=== PATIENT | female | born 1990 | race Caucasian/White ===

== ENCOUNTER 2024-03-05 08:45 | Emergency (ER) | payer BC, SELFPAY ==
[2024-03-05 08:46] VITALS: BP 109/78
[2024-03-05 09:11] VITALS: BMI 21.5
--- NOTE | 2024-03-05 09:23 | EDRN ---
Karen DOUGLASS in room w/ pt.
--- NOTE | 2024-03-05 09:30 | ED.GENMED ---
History of Present Illness
General
Chief Complaint: Abdominal Pain
Source: patient
Exam Limitations: none
Time Seen by Provider: 03/05/24 09:03
Nursing documentation reviewed up to this point in time: agreed with
History of Present Illness
History of Present Illness:
pt is a 33 y/o F from [place], [place]
who reportedly ws dx with crohns 1 year ago via colonscopy
asthma, sinusitis, eosinophilic esophagitis 'on a biologic'
was on linzess but says she stopped it 'to focus on my sinus problems and asthma and allergies'
chronic constipation, usually goes 1 time per week
leaving to go back home tomorrow
here with lower abd pain/cramps that are intense, and constipation despite a dose of doculax
she did not try an enema or other meds to help her go
sh ehas not had bloody, mucusy, stools, fever
she also reports dysuria
has nto really been followed by GI since getting off the linzess
Past History
Past History
ED Past Medical History: Other (crohns) and Other (eosinophilic esophagitis, asthma, allergies)
ED Past Surgical History: Cholecystectomy and Other (mutiplle sinus surgeries)
Social History
Tobacco: Non-smoker
Alcohol: None
Drug: None
Personal:
Living: with family
Review of Systems
Review of Systems
Allergies reviewed?: Yes
All Other Systems: Not applicable
Phy Exam
Physical Exam
Physical Exam:
GENERAL: Alert , in no apparent distress
EYE: pupils equal and reactive
NECK: Supple
ENT: o/p clr, mmm.
CARDIAC: Regular rate and rhythm .
LUNGS: Clear breath sounds bilaterally, no acute respiratory distress, no wheezes/rales/rhonchi
ABDOMEN: Soft, lower abdominal tenderness mild, no r/g, no cvat, normal bowel sounds, flat nondistended
Rectal small external nonbleeding hemorrhoid nonthrombosed, no pain, no stool in the vault
NEUROLOGICAL: Alert and oriented, no focal neuro deficits
SKIN: Warm and dry, skin intact.
MUSCULOSKELETAL: No edema, well perfused. neg sanya's sign
PSYCH: Normal and appropriate interaction.
Course
Orders/Labs/Results
Orders:
Orders
03/05/24 09:15
IV Insert/Care/Rem.- Treatment PRN
03/05/24 09:16
Test Result ONCE
03/05/24 09:21
Complete Blood Count/With Diff Urgent
Comprehensive Metabolic Panel Urgent
HCG, Serum Qualitative Screen Urgent
03/05/24 09:28
CT Abd/pel W Iv And Oral Contr Urgent
Comment:
Reason For Exam: constipation, lowe abd pain, h/o crohns
0.9% Sodium Chloride 1000 ml [Nss] 1,000 ml IV BOLUS
HYDROmorphone [Dilaudid] 0.5 mg IV NOW STA
Iohexol [Omnipaque] See Protocol PO NOW STA
Ondansetron Injectable [Zofran] 4 mg IV NOW STA
03/05/24 10:43
Diphenhydramine [Benadryl] 25 mg IV NOW STA
Ketorolac [Toradol] 15 mg IV NOW STA
Metoclopramide [Reglan] 10 mg IV NOW STA
03/05/24 11:11
Urinalysis Reflex To Culture Urgent
Date Specimen was Collected: 03/05/24
Time Specimen was Collected: 10:56
Abnormal Lab Results
03/05/24
11:11
Urine Bilirubin 1+ A
(Negative)
03/05/24 09:21
03/05/24 09:21
Vital Signs
Initial and Last Documented VS:
Initial Vital Signs
Temp Pulse Resp BP Pulse Ox
97.7 F 68 16 109/78 98
03/05/24 08:46 03/05/24 08:46 03/05/24 08:46 03/05/24 08:46 03/05/24 08:46
Last Documented Vital Signs
Temp Pulse Resp BP Pulse Ox
97.7 F 60 16 101/77 98
03/05/24 08:46 03/05/24 14:00 03/05/24 14:00 03/05/24 14:00 03/05/24 14:00
MDM/Problems Addressed
Differential Diagnosis Includes:
constipation, ,crohn's, obstruction, uti
MDM/Problems Addressed:
33 y/o F
reorted h/o contipation chronically and crohns but not treated
says she had linzess previously but no longer takes it w
is nt on any immunosuppression
here with lower adp ainand constipation
[place]
last good bm 7dasy ago
tried doculax, small amount
no blooy, mucus
having more pain and is requesting pain control and ivf
travels home to [place] tomorrow
on exam minimal if any tenderness, no stool in the vault, no fevers, well-appearing. Patient has unremarkable labs and a CT showing a very mild focal colitis and stool in the colon. There is no abscess or obstruction. She is not having any
diarrhea. Case discussed with ED attending. Unlikely to be a true Crohn's flare, unclear why the patient was given Linzess as a treatment for Crohn's but it seems like she is chronic constipation. Offered her MiraLAX or mag citrate but she does
not want to take it before flying. She is asking for pain medication. Will give her short course of pain medication Bentyl and oxycodone and recommend MiraLAX and follow-up with GI
*Critical Care Note
Total Time (30-74mins, 75-104mins- exclusive of procedures): Not Applicable
ED Attending Note
-
Portions of this chart may have been created with voice recognition software.� Occasional wrong word or��sound alike� substitutions may have occurred due to the inherent limitations of voice recognition software.
Discharge Plan
Departure
Patient Disposition: Home (Routine Discharge)
Date of Disposition: 03/05/24
Time of Disposition: 13:48
Patient with high blood pressure during this ER visit?: No
Condition: Fair
Discharge Problem:
Chronic constipation, Abdominal pain
Instructions: Constipation, Adult (DC)
Prescriptions:
New
oxycodone 5 mg tablet
5 mg PO Q8H PRN (Reason: Pain) Qty: 4 0RF
dicyclomine 20 mg tablet
20 mg PO TID PRN (Reason: ABDOMINAL PAIN) Qty: 6 0RF
Referrals:
NONE,* [Family Provider] -
Activity Restrictions/Additional Instructions:
YOU NEED TO FOLLOW UP WITH A GI DOCTOR WHEN YOU GET HOME
YOU WERE CONSTIPATED AND HAD MILD INFLAMMATION IN YOUR COLON ON CT
TRY MIRALAX OR MAGNESIUM CITRATE FOR THE CONSTIPATION
YOU CAN TAKE BENTYL 20 MG 3 TIMES A DAY FOR CRAMPY ABDOMINAL GUILLAUME FOR 2 DAYS
AND NEEDED YOU CAN TAKE OXYCODONE 5 MG EVERY 8 HORUS
RETURN FOR ANY CONCER, SFEVER, VOMITING, BLOODY STOOL ETC
Interventions
Interventions:
*Risk Screen - Suicide Last Done: 03/05/24 08:46
*General Assessment Last Done: 03/05/24 08:46
*Neglect/Abuse Screening Last Done: 03/05/24 08:46
ED- Fall Risk Assessment Last Done: 03/05/24 09:14
*ED COVID-19 Vaccine History Last Done: 03/05/24 09:14
*Nursing Disposition Last Done: 03/05/24 14:17
NT-Xdngtx-Jmhrcxwhoh Assessment Last Done: 03/05/24 09:30
Discharge Date and Time
Discharge Date/Time: 03/05/24 14:17
Print Language: KAZAKH
[2024-03-05 09:33] LABS: % Basophils 0.3 % (0-2); % Eosinophils 4.6 % (0-6); % Immature Granulocytes 0.3 % (0-0.5); % Lymphocytes 36.9 % (20.5-51.1); % Monocytes 5.8 % (1.7-9.3); % Neutrophils 52.1 % (42.2-75.2); Absolute Eosinophils 0.3 10^3/uL (0-0.7); Absolute Lymphocytes 2.7 10^3/uL (1.2-3.4); Absolute Monocytes 0.4 10^3/uL (0.1-0.6); Absolute Neutrophils 3.9 10^3/uL (1.4-6.5); Hematocrit 37.1 % (37.0-47.0); Hemoglobin 12.9 g/dL (12.0-16.0); Mean Corp Hgb Conc. 34.8 g/dL (33.0-37.0); Mean Corpuscular Volume 83.4 fL (81.0-99.0); Mean Platelet Volume 10.1 fL (7.4-10.4); Nucleated Red Blood Cells % 0 %; Platelet Count 322 10^3/uL (130-400); Red Blood Cell Count 4.45 10^6/uL (4.20-5.40); Red Cell Dist. Width 14.2 % (11.5-14.5); White Blood Cell Count 7.4 10^3/uL (4.8-10.8)
[2024-03-05] MEDS: NSS 1000 IV (09:38)
[2024-03-05] MEDS: ZOFRAN 4 MG IV (09:40)
[2024-03-05] MEDS: DILAUDID 0.5 MG IV (09:40)
[2024-03-05] MEDS: OMNIPAQUE 50 ML PO (09:41)
[2024-03-05 09:44] VITALS: BP 108/73
[2024-03-05 09:48] LABS: HCG, Serum Qualitative Screen Negative
[2024-03-05 09:50] LABS: ALT (SGPT) 14 U/L (0-35); AST (SGOT) 15 U/L (14-36); Albumin 4.3 g/dl (3.5-5.0); Alkaline Phosphatase 54 U/L (38-126); Blood Urea Nitrogen 14 mg/dl (7-17); Calcium 9.7 mg/dl (8.4-10.2); Carbon Dioxide 27 mmol/L (22-30); Chloride 104 mmol/L (98-107); Estimated Creatinine Clearance 101 ml/min; Glucose 92 mg/dl (70-99); Sodium 136 mmol/L (135-145); Total Bilirubin 0.6 mg/dl (0.2-1.3); Total Protein 6.5 g/dl (6.3-8.2); eGFR > 60.00
--- NOTE | 2024-03-05 10:55 | EDRN ---
Pt in [place] at this time.
[2024-03-05] MEDS: TORADOL 15 MG IV (11:09)
[2024-03-05] MEDS: BENADRYL 25 MG IV (11:09)
[2024-03-05] MEDS: REGLAN 10 MG IV (11:09)
[2024-03-05 11:37] LABS: Urine Albumin Negative (Neg - Trace); Urine Bilirubin 1+ (Negative); Urine Character Clear (Clear); Urine Color Yellow; Urine Glucose Negative (Negative); Urine Ketone Negative (Negative); Urine Leukocyte Negative (Negative); Urine Nitrite Negative (Negative); Urine Occult Blood Negative (Negative); Urine Urobilinogen 1+ (Neg - 1+)
[2024-03-05 12:00] VITALS: BP 112/74
[2024-03-05 13:26] VITALS: BP 102/77
--- NOTE | 2024-03-05 13:46 | EDRN ---
Karen DOUGLASS in room w/ pt at this time.
[2024-03-05 14:00] VITALS: BP 101/77
== END 2024-03-05 14:17 | disposition home or self-care (01) ==
LOC: EMR 08:45
PROVIDERS: Physician Assistant; EMERGENCY PHYSICIAN Emergency Medicine
DX: K59.09 Other constipation (principal); R10.30 Lower abdominal pain, unspecified; R30.0 Dysuria; K50.90 Crohn's disease, unspecified, without complications; J45.909 Unspecified asthma, uncomplicated; J32.9 Chronic sinusitis, unspecified; Z90.49 Acquired absence of other specified parts of digestive tract
CPT/HCPCS: 99285; 96375 ×4; 96361; 96374; 74177; 80053; 81003; 84703; 85025; Q9967